=== PATIENT | male | born 1975 | race Caucasian/White ===

== ENCOUNTER 2020-10-16 12:18 | Outpatient (REF) | payer OTHER, SELFPAY | END 2020-10-16 12:19 | disposition home or self-care (01) | LOC: HO.LAB 12:18 | PROVIDERS: Visit Provider Internal Medicine | DX: Z20.828 Contact with and (suspected) exposure to other viral communicable diseases (principal) | CPT/HCPCS: C9803; U0003 ==

== ENCOUNTER 2020-11-09 09:48 | Outpatient (REF) | payer OTHER, SELFPAY | END 2020-11-09 09:49 | disposition home or self-care (01) | LOC: HO.LAB 09:48 | PROVIDERS: Visit Provider Internal Medicine | DX: Z20.828 Contact with and (suspected) exposure to other viral communicable diseases (principal) | CPT/HCPCS: C9803; U0003 ==

== ENCOUNTER 2024-04-14 15:51 | Emergency (ER) | payer OTHER, SELFPAY ==
--- NOTE | 2024-04-14 16:08 | ED_ITS ---
HPI - General Adult General Chief complaint: Nausea/Vomiting/Diarrhea Stated complaint: Diarrhea and frequent urinaton Time Seen by Provider: 04/14/24 16:56 Source: patient, RN notes reviewed and old records reviewed Mode of arrival: ambulatory History of Present Illness ED Provider: Sharifa CHIU narrative: 48-year-old male presents for evaluation of diarrhea. Patient reports he started with diarrhea yesterday. He reports mild abdominal discomfort He denies any fevers or chills. He reports that his and daughter were sick with vomiting and diarrhea 2 days ago Denies any black or bloody stool. He denies any recent antibiotic use or recent travel outside of the country He rates his overall discomfort as 4/10 No other complaints or concerns at this time Related Data Previous Rx's ?Medication ?Instructions ?Recorded loperamide 2 mg capsule 2 mg PO Q4H PRN loose stool #14 04/14/24 (Anti-Diarrheal (loperamide)) caps Allergies Allergy/AdvReac Type Severity Reaction Status Date / Time penicillin G [PENICILLIN G] Allergy Unknown HIVES Verified 04/14/24 16:11 Review of Systems 2 Constitutional: Constitutional: Denies body ache(s), Denies chills and Denies fever(s) Eyes: Eyes: Denies blurry vision ENT: Denies sore throat Cardiovascular: Cardiovascular: Denies chest pain and Denies dyspnea Respiratory: Respiratory: Denies cough and Denies dyspnea Gastrointestinal: Gastrointestinal: Reports abdominal pain, Denies hematochezia, Reports diarrhea, Reports loose stools, Denies nausea and Denies vomiting Genitourinary: Genitourinary: Denies oliguria, Denies dysuria and Denies flank pain Musculoskeletal: Musculoskeletal: Denies back pain Integumentary/Breasts: Skin/Breast: Denies rash PMFSH Social History Social History Advance Directives: No Advance Directives Information Provided: No Physical Exam ED Vital Signs: Vital Signs - 24 hr 04/14/24 16:09 04/14/24 16:59 Temperature 99.2 F 97.8 F Pulse Rate 76 79 Respiratory Rate 16 16 Blood Pressure 124/79 109/80 Pulse Oximetry 98 97 Oxygen Delivery Method Room Air Room Air BMI result Body Mass Index 22.3 Const General: healthy appearing, comfortable, no acute distress, alert and awake Nutritional Appearance: well nourished Orientation/consciousness: patient oriented x3 HENMT Head: Yes normocephalic and Yes atraumatic Eyes Eyelids: Yes eyelids normal Conjunctivae: conjunctivae normal Sclerae: sclerae normal Corneas: corneas normal Pupils: Equal, round and reactive pupils present EOM: EOMs intact bilaterally Neck Neck: Yes full ROM Resp Effort & Inspection: normal respiratory effort, able to speak in complete sentences and not labored GI Inspection: No distended Palpation (GI): Soft to palpation, not firm, nontender, no guarding and not rigid Skin General skin exam: elasticity normal Neuro General: patient oriented x3 Cranial nerves: Yes Equal, round and reactive pupils present and Yes Bilaterally intact EOM present Cognition (Neuro): normal cognition Extrem Other: Moving all extremities well without any obvious deformities Course Course Course Narrative: This is an RME done by ROBERT Light: Additional HPI, ROS, PE not included below will be deferred to primary provider. 48 year old male with no known pmh presents with complaints of diarrhea, abdominal pain, and nausea which began 2 days ago.Reports Daughter and have recently been sick and throwing up also. Patient reports he can not keep food down. Appearance: Alert.? Oriented X3.? No acute cardiopulmonary distress distress.? Head: Normocephalic, atraumatic, no step-offs or deformities ENT: Pharynx normal.??External ears normal, TMs normal bilaterally and EAC's normal. No pain with manipulation of external ears bilaterally. No mastoid tenderness. Neck: Normal inspection.? Neck supple.? CVS: Pulses normal.? Respiratory: No respiratory distress.? Abdomen: Soft and nontender.? Skin: ? Normal skin color. Neuro: Oriented X 3.? No motor deficit.? No sensory deficit. Reevaluation(s) Reevaluation #1: Patient was finally able to give a stool sample just prior to discharge. The patient will still be discharged home. If he test positive for C diff or anything requiring treatment I will give him a call. He is comfortable this plan, he is well-appearing Time: 18:10 Medical Decision Making Medical Decision Making MDM Narrative: 48-year-old male presents with a 1 day history of diarrhea mild abdominal discomfort. On exam he has no abdominal tenderness, rebound, guarding or distention. He has no risk factors for C diff, no recent travel or antibiotic use. His family has had similar symptoms with GI bug in the past 2 days. Patient's symptoms is most likely viral in etiology. He has been unable to provide a stool sample in the ER. The patient has no leukocytosis, no electrolyte abnormalities to suggest significant disease. The patient can safely be discharged home with symptomatic care Differential Diagnosis Differential Diagnoses: The differential diagnosis associated with the presentation includes Acute diarrhea Colitis Diverticulitis Gastroenteritis Peptic ulcer disease C Diff less likely Lab Data MDM Lab Attestation statement: I reviewed the patient's lab results. No leukocytosis. The patient has a mild anemia with a hematocrit of 40.1, normal hemoglobin of 14.1. Normal platelet count. No electrolyte abnormalities 04/14/24 16:52 04/14/24 16:52 Labs: Lab Results 04/14/24 Range/Units 16:52 WBC 7.8 (4.8-10.8) X10*3/uL RBC 4.41 L (4.60-5.80) X10*6/uL Hgb 14.1 (14.0-18.0) g/dl Hct 40.1 L (42.0-52.0) % MCV 90.9 (80.0-98.0) fL MCH 32.0 (27.0-33.0) pg MCHC 35.2 (31.0-36.0) g/dl RDW 13.0 (11.0-16.0) % Plt Count 249 (160-400) X10*3/uL MPV 8.9 L (9.4-12.4) fL Immature Gran % (Auto) 0.4 (0.0-0.4) % Neut % (Auto) 86.5 H (45-73) % Lymph % (Auto) 6.0 L (20-40) % Wilbarger % (Auto) 4.6 (2-11) % Eos % (Auto) 2.4 (0-4) % Baso % (Auto) 0.1 (0-2) % Lymph # (Auto) 0.5 L (1.2-4.9) X10*3/uL [place]ger # (Auto) 0.4 (0.1-1.2) X10*3/uL Eos # (Auto) 0.2 (0.0-0.4) X10*3/uL Baso # (Auto) 0.0 (0.0-0.2) X10*3/uL Abs Immat Gran (auto) 0.03 (0.00-0.03) X10*3/uL Absolute Neuts (auto) 6.8 (2.0-8.3) x10*3/uL Absolute Nucleated RBC 0.000 (0.0-0.012) X10*3/uL Nucleated RBC % (auto) 0.0 (0.0-0.2) /100WBC Sodium 139 (135-145) mmol/L Potassium 3.8 (3.3-5.1) mmol/L Chloride 104 (96-108) mmol/L Carbon Dioxide 26 (22-29) mmol/L Anion Gap 13 (12-20) BUN 14 (9-16) mg/dL Creatinine 0.91 (0.5-1.4) mg/dL Estim Creat Clear Calc 86.2 Estimated GFR > 60 Random Glucose 109 (60-115) mg/dL Calcium 9.0 (8.4-10.2) mg/dL Magnesium 1.9 (1.6-2.6) mg/dL Total Bilirubin 0.8 (0.0-1.0) mg/dL AST 19 (5-37) U/L ALT 19 (0-40) U/L Alkaline Phosphatase 50 (39-117) U/L Total Protein 7.2 (6.5-8.0) g/dL Albumin 4.3 (3.5-5.0) g/dL Influenza Type A (PCR) NEGATIVE (Negative) Influenza Type B (PCR) NEGATIVE (Negative) RSV RNA Qual (PCR) NEGATIVE (Negative) SARS-CoV-2 RNA (RT-PCR) NEGATIVE (Negative) Discharge Plan Discharge Clinical Impression: Diarrhea Patient Disposition: Home, Self-Care Instructions: Acute Diarrhea (ED) Additional Instructions: Your workup in the ER today was reassuring. This includes your blood work vital signs. Your symptoms are most likely related tenderness stomach virus. Use Imodium as needed for diarrhea Drink lots of fluids, small sips at a time. A brat diet consisting of bananas, rice, applesauce, toast can help slow the diarrhea Follow-up with your primary doctor, return for new or worsening symptoms Prescriptions: New loperamide [Anti-Diarrheal (loperamide)] 2 mg capsule 2 mg PO Q4H PRN (Reason: loose stool) Qty: 14 0RF Rx Instructions: administer after each loose stool until symptoms controlled; do not exceed 8 mg per 24 hrs Stand Alone Forms: Work/School Release Print Language: Turkmen
[2024-04-14 16:09] VITALS: BP 124/79; PULSE 76; RESP 16; TEMP 37.3; O2SAT 98; BMI 22.3
[2024-04-14 16:55] LABS: MANUAL DIFF FLAG NO
[2024-04-14 16:57] LABS: Basophils Percent Auto 0.1 % (0-2); Eosinophils Absolute Auto 0.2 X10*3/uL (0.0-0.4); Eosinophils Percent Auto 2.4 % (0-4); Hematocrit 40.1 % (42.0-52.0); Hemoglobin 14.1 g/dl (14.0-18.0); Imm Gran Abs Auto 0.03 X10*3/uL (0.00-0.03); Imm Gran Pct Auto 0.4 % (0.0-0.4); Lymphocytes Absolute Auto 0.5 X10*3/uL (1.2-4.9); Mean Corpuscular HGB Conc 35.2 g/dl (31.0-36.0); Mean Corpuscular Volume 90.9 fL (80.0-98.0); Mean Platelet Volume 8.9 fL (9.4-12.4); Monocytes Absolute Auto 0.4 X10*3/uL (0.1-1.2); Monocytes Percent Auto 4.6 % (2-11); Neutrophils Absolute Auto 6.8 x10*3/uL (2.0-8.3); Neutrophils Percent Auto 86.5 % (45-73); Platelet Count 249 X10*3/uL (160-400); Red Blood Count 4.41 X10*6/uL (4.60-5.80); White Blood Count 7.8 X10*3/uL (4.8-10.8)
[2024-04-14 16:59] VITALS: BP 109/80; PULSE 79; RESP 16; TEMP 36.6; O2SAT 97
[2024-04-14 17:17] LABS: Alanine Aminotransferase 19 U/L (0-40); Albumin Level 4.3 g/dL (3.5-5.0); Alkaline Phosphatase 50 U/L (39-117); Anion Gap 13 (12-20); Aspartate Amino Transferase 19 U/L (5-37); Bilirubin Total 0.8 mg/dL (0.0-1.0); Blood Urea Nitrogen 14 mg/dL (9-16); Carbon Dioxide 26 mmol/L (22-29); Chloride 104 mmol/L (96-108); Creatinine Clr Calc Pharmacy 86.2; Estimated Glomerular Filt Rate > 60; Glucose Random 109 mg/dL (60-115); Magnesium 1.9 mg/dL (1.6-2.6); Potassium 3.8 mmol/L (3.3-5.1); Sodium 139 mmol/L (135-145); Total Protein 7.2 g/dL (6.5-8.0)
[2024-04-14 17:36] LABS: Influenza A PCR NEGATIVE (Negative); Influenza B PCR NEGATIVE (Negative); Resp Syncy Virus RNA Qual PCR NEGATIVE (Negative); SARS COV2 PCR INHOUSE NEGATIVE (Negative)
[2024-04-14 18:21] LABS: Appearance Urine Clear; Color Urine Yellow; Glucose Urine UA Negative (Negative); Leukocyte Esterase Urine Negative (Negative); Nitrite Urine Negative (Negative); Specific Gravity - Urine 1.025 (1.005-1.025); Urine Blood Negative (Negative); Urine Ketones Negative (Negative); Urine Protein Trace mg/dL (Neg-Trace)
[2024-04-14 18:25] VITALS: BP 116/77; PULSE 71; RESP 16; TEMP 36.8; O2SAT 99
[2024-04-14 19:18] LABS: CDiff Gene PCR NEGATIVE (Negative)
[2024-04-15 09:13] LABS: Adenovirus F 40/41 Not Detected (Not Detect.); Astrovirus Not Detected (Not Detect.); Campylobacter Not Detected (Not Detect.); Cryptosporidium Not Detected (Not Detect.); Cyclospora cayetanensis Not Detected (Not Detect.); E. coli EAEC Not Detected (Not Detect.); E. coli EPEC Not Detected (Not Detect.); E. coli ETEC Not Detected (Not Detect.); E. coli STEC Not Detected (Not Detect.); Entamoeba histolytica Not Detected (Not Detect.); Giardia lamblia Not Detected (Not Detect.); Plesiomonas shigelloides Not Detected (Not Detect.); Rotavirus A Not Detected (Not Detect.); Salmonella Not Detected (Not Detect.); Sapovirus Not Detected (Not Detect.); Shigella sp./EIEC Not Detected (Not Detect.); Vibrio Not Detected (Not Detect.); Vibrio Cholerae Not Detected (Not Detect.); Yersinia enterocolitica Not Detected (Not Detect.)
== END 2024-04-14 18:27 | disposition home or self-care (01) ==
PROVIDERS: Physician Assistant; Emergency Provider Emergency Medicine
DX: R19.7 Diarrhea, unspecified (principal); R35.0 Frequency of micturition; Z03.818 Encounter for observation for suspected exposure to other biological agents ruled out
CPT/HCPCS: 0241U; 36415; 80053; 81003; 83735; 85025; 87493; 87507; 99283; 99284

== ENCOUNTER 2024-09-01 10:17 | Emergency (ER) | payer OTHER, SELFPAY ==
[2024-09-01 10:30] VITALS: BP 123/84; PULSE 73; RESP 16; TEMP 36.1; O2SAT 99; BMI 21.0
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
[2024-09-01 10:47] VITALS: BP 145/88; PULSE 78; RESP 16; TEMP 37; O2SAT 97
[2024-09-01 11:17] VITALS: BMI 21.2
--- NOTE | 2024-09-01 11:30 | PC.NURSE ---
Called pharmacy @ 1130 to request Immune globulin restock. Medicine was not available in Main ED pyxis.
[2024-09-01] MEDS: Rabies Vaccine (PCEC)/PF 1 ML VIAL IM (12:00)
[2024-09-01] MEDS: Rabies Immune Globulin/PF 900 UNIT/3 ML VIAL 1179.34 UNIT IM (12:01)
--- NOTE | 2024-09-01 13:48 | PC.NURSE ---
Multiple attempts made to fax dog bite form to phone number [phone] constant error report received.
--- NOTE | 2024-09-01 13:54 | PC.NURSE ---
Called [facility] [employer], phone number directed me to board of health pressed ext 2 for animal care taker, phone call transferred to animal care taker after pressing extension no answer left voicemail to Marco Antonio Choudhury (O) @ [phone] and tried to reach again @ [phone].
--- NOTE | 2024-09-01 16:02 | PC.NURSE ---
Domestic Animal bite reporting form faxed by early childhood teacher assistant to MARSHA correa (small business director) @[phone] file #[phone].
[2024-09-01 16:04] VITALS: BP 145/88; PULSE 78; RESP 16; TEMP 37; O2SAT 97
== END 2024-09-01 16:30 | disposition home or self-care (01) ==
PROVIDERS: Emergency Provider Emergency Medicine
DX: S41.152A Open bite of left upper arm, initial encounter (principal); W54.0XXA Bitten by dog, initial encounter; Y93.55 Activity, bike riding; Y92.414 Local residential or business street as the place of occurrence of the external cause; Y99.9 Unspecified external cause status; Z23 Encounter for immunization; Z20.3 Contact with and (suspected) exposure to rabies
CPT/HCPCS: 90375; 90471; 90675; 96372; 99284

== ENCOUNTER 2024-09-15 14:00 | Outpatient (RCR) | payer OTHER, SELFPAY ==
[2024-09-04 10:06] VITALS: BP 110/71; PULSE 73; RESP 20; TEMP 36.1; O2SAT 98; BMI 21.8
[2024-09-04] MEDS: Rabies Vaccine (PCEC)/PF 1 ML VIAL IM (10:07)
[2024-09-08 12:56] VITALS: BP 105/68; PULSE 83; RESP 14; TEMP 36.6; O2SAT 96
[2024-09-08] MEDS: Rabies Vaccine (PCEC)/PF 1 ML VIAL IM (13:04)
[2024-09-15 13:58] VITALS: BP 107/69; PULSE 72; RESP 14; TEMP 36.6; O2SAT 98
[2024-09-15] MEDS: Rabies Vaccine (PCEC)/PF 1 ML VIAL IM (14:06)
== END 2024-09-15 14:10 | disposition home or self-care (01) ==
LOC: HO.INF 14:00
PROVIDERS: Visit Provider Physician Assistant Medical
DX: Z20.3 Contact with and (suspected) exposure to rabies (principal); T14.8XXD Other injury of unspecified body region, subsequent encounter; W54.0XXD Bitten by dog, subsequent encounter
CPT/HCPCS: 90471; 90675